=== PATIENT | male | born 1970 | race Caucasian/White ===

== ENCOUNTER → 2021-08-09 | Outpatient (CLI) | payer OTHER ==
[~2021-08-09] MED LIST: ASPIRIN EC81 MG PO; ATORVASTATIN CA20 MG PO; CARVEDILOL3.125 MG PO; CLOPIDOGREL75 MG PO; LISINOPRIL40 MG PO; METOPROLOL SUCC25 MG PO; NICOTINE PATCH1 EAC1 TD; NITROGLYCERIN0.4 MG SL; THERAGRAN M TAB1 EA PO
== END ==
LOC: KOH-I 09:19
DX: M79.672 Pain in left foot (principal)
CPT/HCPCS: 73630

== ENCOUNTER → 2021-11-18 | Outpatient (CLI) | payer OTHER | LOC: HEART 5 10:39 | DX: I25.10 Atherosclerotic heart disease of native coronary artery without angina pectoris (principal); I10 Essential (primary) hypertension | CPT/HCPCS: 93017 ==